=== PATIENT | female | born 1955 | race Caucasian/White ===

== ENCOUNTER → 2017-03-11 | Outpatient (CLI) | payer MEDICARE, OTHER ==
[~2017-03-11] MED LIST: DIABETA5 MG PO; GABAPENTIN100 MG PO; LANTUS100 UNIT/2 SC; METFORMIN HCL1000 MG PO; METFORMIN HCL500 MG PO; ZOLOFT100 MG PO
== END | disposition home or self-care (01) ==
LOC: CDC 12:32
DX: R94.31 Abnormal electrocardiogram [ECG] [EKG] (principal)
CPT/HCPCS: 93000

== ENCOUNTER 2018-02-09 22:33 | Inpatient (IN) | payer OTHER ==
[~2018-02-09] VITALS: Ht 162.6 cm; Wt 100.2 kg
[~2018-02-09 22:33] MED LIST changes: +CYANOCOBALAM1000 MCG PO; +CYMBALTA60 MG PO; +LEVEMIR FL100 UNIT/1 SC; +LIPITOR20 MG PO; +LYRICA200 MG PO; +NOVOLIN N100 UNITS/ SC; +OMEPRAZOLE40 M1 PO; +VITAMIN D32000 UNI1 PO
[2018-02-10 10:57] VITALS: BP 124/65
[2018-02-10 11:09] VITALS: BP 146/67
[2018-02-10 16:55] VITALS: BP 136/75
[2018-02-10 19:41] VITALS: BP 136/79
[2018-02-10 19:44] LABS: HEMATOCRIT 38.1 % (36.0-46.0); HEMOGLOBIN 12.3 G/DL (11.9-15.5); MCH 28.1 PG (29.0-34.0); MCHC 32.3 G/DL (30.0-36.0); MCV 87.2 FL (83-99); PLATELET COUNT 279 K/uL (156-360); RBC DIS.WIDTH-CV 14.4 % (11.8-14.6); RBC DIS.WIDTH-SD 46.2 % (39-53); RED BLOOD COUNT 4.37 M/uL (3.80-5.20); WHITE BLOOD COUNT 11.8 K/uL (4.1-10.2)
[2018-02-10 20:08] LABS: CHLORIDE 106 MEQ/L (99-109); CREATININE 0.6 MG/DL (0.6-1.3); GFR ESTIMATE (CALCULATED) > 59 mL/min/; GLUCOSE 122 mg/dL (70-99); POTASSIUM 4.1 MEQ/L (3.7-5.4); SODIUM 138 MEQ/L (136-147); UREA NITROGEN (BUN) 10 mg/dL (9-23)
[2018-02-10 23:40] VITALS: BP 140/74
[2018-02-11 03:42] VITALS: BP 126/64
[2018-02-11 05:41] LABS: HEMATOCRIT 37.4 % (36.0-46.0); HEMOGLOBIN 11.9 G/DL (11.9-15.5); MCH 28.1 PG (29.0-34.0); MCHC 31.8 G/DL (30.0-36.0); MCV 88.4 FL (83-99); PLATELET COUNT 264 K/uL (156-360); RBC DIS.WIDTH-CV 14.5 % (11.8-14.6); RED BLOOD COUNT 4.23 M/uL (3.80-5.20); WHITE BLOOD COUNT 10.7 K/uL (4.1-10.2)
[2018-02-11 06:10] LABS: CHLORIDE 104 MEQ/L (99-109); CREATININE 0.7 MG/DL (0.6-1.3); GFR ESTIMATE (CALCULATED) > 59 mL/min/; GLUCOSE 152 mg/dL (70-99); POTASSIUM 4.2 MEQ/L (3.7-5.4); SODIUM 138 MEQ/L (136-147); UREA NITROGEN (BUN) 9 mg/dL (9-23)
[2018-02-11 07:25] VITALS: BP 105/60
[2018-02-11 11:07] VITALS: BP 99/51
[2018-02-11 14:54] VITALS: BP 101/51
[2018-02-11 19:02] VITALS: BP 108/55
[2018-02-11 23:37] VITALS: BP 97/52
[2018-02-12 03:55] VITALS: BP 106/53
[2018-02-12 05:30] LABS: HEMATOCRIT 33.2 % (36.0-46.0); HEMOGLOBIN 10.7 G/DL (11.9-15.5); MCH 28.4 PG (29.0-34.0); MCHC 32.2 G/DL (30.0-36.0); MCV 88.1 FL (83-99); PLATELET COUNT 240 K/uL (156-360); RBC DIS.WIDTH-CV 14.6 % (11.8-14.6); RED BLOOD COUNT 3.77 M/uL (3.80-5.20); WHITE BLOOD COUNT 11.2 K/uL (4.1-10.2)
[2018-02-12 06:13] LABS: CHLORIDE 105 MEQ/L (99-109); CREATININE 0.9 MG/DL (0.6-1.3); GFR ESTIMATE (CALCULATED) > 59 mL/min/; POTASSIUM 4.2 MEQ/L (3.7-5.4); SODIUM 135 MEQ/L (136-147); UREA NITROGEN (BUN) 15 mg/dL (9-23)
[2018-02-12 06:16] LABS: GLUCOSE 244 mg/dL (70-99)
[2018-02-12 07:11] VITALS: BP 136/72
[2018-02-12] MEDS ORDERED: TRAMADOL HCL50 MG PO (09:02)
== END 2018-02-12 11:50 | disposition home or self-care (01) | DRG 741 ==
LOC: 2SOUTH → ENRESERV 22:33 → 2EASTP 02-10 10:17 → 2SOUTH 02-10 10:17 → ENRESERV 02-10 13:48 → 2SOUTH 02-10 15:09 → 2EASTP 02-10 16:46
PROVIDERS: Obstetrics & Gynecology Gynecologic Oncology
DX: C54.1 Malignant neoplasm of endometrium (principal); E66.9 Obesity, unspecified; Z68.38 Body mass index [BMI] 38.0-38.9, adult; E11.40 Type 2 diabetes mellitus with diabetic neuropathy, unspecified; E78.5 Hyperlipidemia, unspecified; K21.9 Gastro-esophageal reflux disease without esophagitis; E55.9 Vitamin D deficiency, unspecified; E53.8 Deficiency of other specified B group vitamins
CPT/HCPCS: 36415; 80048; 82948; 85027; 86850; 86900; 86901; 86920; 87641; 88309; 94799; J0131; J0360; J0690; J1200; J1650; J1815; J1885; J2250; J2405; J2710; J2765; J3010; J7120; J7643